=== PATIENT | male | born 1955 | race African-American/Black ===

== ENCOUNTER 2017-05-27 07:22 | Inpatient (IN) | payer MEDICAID ==
[~2017-05-27] VITALS: Ht 172.7 cm; Wt 77.1 kg
[~2017-05-27 07:22] MED LIST: AMLO10TA80 PO; ATEN50TA PO; ATOR40TA70 PO; CODE473S5 PO; GLIP5TAB12 PO; HYDR-519 PO; LISI40TA4 PO; ZOLP10TA2 PO
[2017-05-27 12:16] LABS: GLUCOSE URINE 3+ (NEGATIVE); KETONES URINE TRACE (NEGATIVE); LEUKOCYTE ESTERASE URINE 2+ (NEGATIVE); NITRITE URINE POSITIVE (NEGATIVE); OCCULT BLOOD URINE 3+ (NEGATIVE); PROTEIN URINE 2+ (NEGATIVE); SPECIFIC GRAVITY URINE 1.035 (1.005-1.030)
[2017-05-27 12:17] LABS: CLARITY URINE TURBID (CLEAR); COLOR URINE AMBER (YELLOW)
[2017-05-27] MEDS ORDERED: ONDANSETRON HCL 4MG/2ML VIAL IV STA (14:21)
[2017-05-27] MEDS ORDERED: MORPHINE SULFATE 4 MG/ML CPJ (NOT FOR IM USE) IV STA (14:21)
[2017-05-27] MEDS ORDERED: SODIUM CHLORIDE 0.9% 1,000 ML IV ONE (14:21)
[2017-05-27] MEDS ORDERED: MORPHINE SULFATE 4 MG/ML CPJ (NOT FOR IM USE) IV ONE (14:30)
[2017-05-27] MEDS ORDERED: ONDANSETRON HCL 4MG/2ML VIAL IV ONE (14:30)
[2017-05-27] MEDS ORDERED: MORPHINE SULFATE 4 MG/ML CPJ (NOT FOR IM USE) IV NR (14:48)
[2017-05-27] MEDS ORDERED: MORPHINE SULFATE 10 MG/ML CPJ IV NR (14:49)
[2017-05-27 14:53] LABS: BASOPHILS % 0.8 % (0.0-2.0); EOSINOPHILS % 0.2 % (0.0-5.0); HEMATOCRIT. 40.6 % (42.0-52.0); HEMOGLOBIN. 13.4 g/dL (14.0-18.0); LYMPHOCYTES % 15.7 % (20.0-50.0); MEAN PLATELET VOLUME 7.1 fl (7.4-10.4); MONOCYTES % 5.7 % (2.0-8.0); NEUTROPHILS % 77.6 % (40.0-76.0); PLATELET 251 x1000/uL (130-400); RED BLOOD CELL COUNT 4.78 mill/uL (4.7-6.1); RED CELL DISTRIBUTION WIDTH 13.9 % (11.6-14.6)
[2017-05-27 14:57] LABS: CHLORIDE 107 mEq/L (98-107)
[2017-05-27 14:59] LABS: INR 1.1; PARTIAL THROMBOPLASTIN TIME 29.1 sec (23.4-31.0); PROTHROMBIN TIME 11.6 sec (9.4-11.6)
[2017-05-27 15:07] LABS: CARBON DIOXIDE 22 mEq/L (21-32)
[2017-05-27] MEDS ORDERED: CEFTRIAXONE 1 G PREMIX 50 ML IV ONE (16:15)
[2017-05-27 18:21] VITALS: BP 113/68
[2017-05-27] MEDS ORDERED: METF10002 PO (18:27)
[2017-05-27] MEDS ORDERED: ALBU18HF2 IH (18:28)
[2017-05-27 20:00] VITALS: BP 108/63
[2017-05-27] MEDS: ATORVASTATIN CALCIUM 40MG TABLET PO SCH (21:00)
[2017-05-27] MEDS ORDERED: ALBUTEROL 6.7GM HFA INHALER INH SCH (21:00)
[2017-05-27] MEDS: ACETAMINOPHEN 325MG TABLET PO PRN (21:35)
[2017-05-27] MEDS: SODIUM CHLORIDE 0.9% 1,000 ML IV SCH (21:36)
[2017-05-27] MEDS ORDERED: ONDANSETRON HCL 4MG/2ML VIAL IV PRN (22:00)
[2017-05-27] MEDS: BLOOD SUGAR DIAGNOSTIC STRIP TEST SCH (22:15)
[2017-05-27] MEDS: CEFEPIME 1,000 MG in DEXTROSE 5% WATER 50 ML IV SCH (22:21)
[2017-05-27] MEDS: MORPHINE SULFATE 10 MG/ML CPJ IV PRN (22:42)
[2017-05-28] VITALS: BP 115/63
[2017-05-28] MEDS ORDERED: ALBUTEROL (0.083%) 2.5MG/3ML NEB HHN SCH
[2017-05-28 04:00] VITALS: BP 120/68
[2017-05-28 06:21] LABS: BASOPHILS % 0.2 % (0.0-2.0); EOSINOPHILS % 0.1 % (0.0-5.0); HEMATOCRIT. 39.6 % (42.0-52.0); HEMOGLOBIN. 12.8 g/dL (14.0-18.0); LYMPHOCYTES % 8.9 % (20.0-50.0); MEAN CORPUSCULAR HEMOGLOBIN 27.8 pg (28.0-32.0); MEAN CORPUSCULAR VOLUME 86.4 fL (80.0-94.0); MEAN PLATELET VOLUME 7.2 fl (7.4-10.4); MONOCYTES % 5.8 % (2.0-8.0); PLATELET 219 x1000/uL (130-400); RED BLOOD CELL COUNT 4.59 mill/uL (4.7-6.1); RED CELL DISTRIBUTION WIDTH 13.8 % (11.6-14.6)
[2017-05-28] MEDS: BLOOD SUGAR DIAGNOSTIC STRIP TEST SCH ×3 (06:35→21:23)
[2017-05-28] MEDS: SODIUM CHLORIDE 0.9% 1,000 ML IV SCH ×2 (06:35→17:33)
[2017-05-28 07:09] LABS: CARBON DIOXIDE 25 mEq/L (21-32); CHLORIDE 107 mEq/L (98-107)
[2017-05-28 08:00] VITALS: BP 123/65
[2017-05-28] MEDS: ACETAMINOPHEN 325MG TABLET PO PRN ×2 (08:43→15:06)
[2017-05-28] MEDS: LISINOPRIL 40MG TABLET PO SCH (08:44)
[2017-05-28] MEDS: AMLODIPINE 10MG TABLET PO SCH (08:44)
[2017-05-28] MEDS ORDERED: ATENOLOL 50 MG TABLET PO SCH (09:00)
[2017-05-28] MEDS: CEFEPIME 1,000 MG in DEXTROSE 5% WATER 50 ML IV SCH ×2 (09:00→21:18)
[2017-05-28] MEDS: ATENOLOL 100 MG TABLET PO SCH (09:00)
[2017-05-28] MEDS: MORPHINE SULFATE 10 MG/ML CPJ IV PRN ×2 (10:39→18:09)
[2017-05-28 12:00] VITALS: BP 99/61
[2017-05-28] MEDS: TAMSULOSIN HCL 0.4MG SR CAPSULE PO SCH (12:54)
[2017-05-28 16:00] VITALS: BP 101/54
[2017-05-28 20:00] VITALS: BP 122/66
[2017-05-28] MEDS: ATORVASTATIN CALCIUM 40MG TABLET PO SCH (21:18)
[2017-05-28] MEDS: HYDROCODONE/ACETAMINOPHEN 10/325MG TABLET PO PRN (21:20)
[2017-05-29] VITALS: BP 108/57
[2017-05-29] MEDS: SODIUM CHLORIDE 0.9% 1,000 ML IV SCH ×2 (03:00→14:03)
[2017-05-29 04:00] VITALS: BP 106/56
[2017-05-29] MEDS: HYDROCODONE/ACETAMINOPHEN 10/325MG TABLET PO PRN ×3 (05:16→23:23)
[2017-05-29] MEDS: BLOOD SUGAR DIAGNOSTIC STRIP TEST SCH ×4 (07:05→21:02)
[2017-05-29 07:16] LABS: BASOPHILS % 0.3 % (0.0-2.0); EOSINOPHILS % 0.8 % (0.0-5.0); HEMATOCRIT. 36.3 % (42.0-52.0); HEMOGLOBIN. 11.8 g/dL (14.0-18.0); LYMPHOCYTES % 15.7 % (20.0-50.0); MEAN CORPUSCULAR VOLUME 85.7 fL (80.0-94.0); MEAN PLATELET VOLUME 7.5 fl (7.4-10.4); MONOCYTES % 7.3 % (2.0-8.0); NEUTROPHILS % 75.9 % (40.0-76.0); PLATELET 198 x1000/uL (130-400); RED BLOOD CELL COUNT 4.23 mill/uL (4.7-6.1); RED CELL DISTRIBUTION WIDTH 13.7 % (11.6-14.6)
[2017-05-29 08:00] VITALS: BP 105/61
[2017-05-29 08:15] LABS: CARBON DIOXIDE 23 mEq/L (21-32); CHLORIDE 107 mEq/L (98-107)
[2017-05-29] MEDS: LISINOPRIL 40MG TABLET PO SCH (09:00)
[2017-05-29] MEDS: AMLODIPINE 10MG TABLET PO SCH (09:00)
[2017-05-29] MEDS: ATENOLOL 100 MG TABLET PO SCH (09:00)
[2017-05-29] MEDS: TAMSULOSIN HCL 0.4MG SR CAPSULE PO SCH (10:12)
[2017-05-29] MEDS: MORPHINE SULFATE 10 MG/ML CPJ IV PRN (10:18)
[2017-05-29] MEDS: CEFEPIME 1,000 MG in DEXTROSE 5% WATER 50 ML IV SCH (10:49)
[2017-05-29 12:00] VITALS: BP 119/65
[2017-05-29] MEDS ORDERED: POTASSIUM CHLORIDE 20MEQ TABLET SR PO NR (13:00)
[2017-05-29 16:00] VITALS: BP 136/77
[2017-05-29] MEDS ORDERED: LEVOFLOXACIN 500MG PREMIX 100 ML IV SCH (16:30)
[2017-05-29] MEDS: ACETAMINOPHEN 325MG TABLET PO PRN (19:27)
[2017-05-29] MEDS ORDERED: DEXTROSE 50% WATER 50ML SYRINGE IV PRN (19:45)
[2017-05-29 20:00] VITALS: BP 127/65
[2017-05-29] MEDS: ATORVASTATIN CALCIUM 40MG TABLET PO SCH (20:29)
[2017-05-29] MEDS ORDERED: BLOOD SUGAR DIAGNOSTIC STRIP TEST SCH (21:00)
[2017-05-29] MEDS: INSULIN LISPRO 100 UNITS/ML SUBCUT SCH (21:22)
[2017-05-30] VITALS: BP 132/77
[2017-05-30] MEDS: SODIUM CHLORIDE 0.9% 1,000 ML IV SCH ×3 (01:33→18:20)
[2017-05-30 04:00] VITALS: BP 146/77
[2017-05-30 07:18] LABS: BASOPHILS % 0.2 % (0.0-2.0); HEMATOCRIT. 36.6 % (42.0-52.0); HEMOGLOBIN. 12.2 g/dL (14.0-18.0); LYMPHOCYTES % 20.3 % (20.0-50.0); MEAN CORPUSCULAR HEMOGLOBIN 28.4 pg (28.0-32.0); MEAN CORPUSCULAR VOLUME 85.4 fL (80.0-94.0); MEAN PLATELET VOLUME 7.4 fl (7.4-10.4); MONOCYTES % 10.6 % (2.0-8.0); NEUTROPHILS % 66.9 % (40.0-76.0); PLATELET 200 x1000/uL (130-400); RED BLOOD CELL COUNT 4.29 mill/uL (4.7-6.1); RED CELL DISTRIBUTION WIDTH 14.1 % (11.6-14.6)
[2017-05-30] MEDS: BLOOD SUGAR DIAGNOSTIC STRIP TEST SCH ×3 (07:30→17:20)
[2017-05-30 07:37] LABS: CARBON DIOXIDE 24 mEq/L (21-32); CHLORIDE 109 mEq/L (98-107)
[2017-05-30 08:00] VITALS: BP 141/81
[2017-05-30] MEDS: ACETAMINOPHEN 325MG TABLET PO PRN (08:15)
[2017-05-30] MEDS: AMLODIPINE 10MG TABLET PO SCH (08:15)
[2017-05-30] MEDS: TAMSULOSIN HCL 0.4MG SR CAPSULE PO SCH (08:16)
[2017-05-30] MEDS: LISINOPRIL 40MG TABLET PO SCH (08:16)
[2017-05-30] MEDS: ATENOLOL 100 MG TABLET PO SCH (08:17)
[2017-05-30] MEDS: INSULIN LISPRO 100 UNITS/ML SUBCUT SCH ×3 (09:08→17:50)
[2017-05-30] MEDS: HYDROCODONE/ACETAMINOPHEN 10/325MG TABLET PO PRN (09:12)
[2017-05-30] MEDS: DOCUSATE SODIUM 100MG CAPSULE PO SCH ×2 (10:09→17:51)
[2017-05-30 12:00] VITALS: BP 105/61
[2017-05-30 16:00] VITALS: BP 127/73
[2017-05-30 18:20] VITALS: BP 127/73
== END 2017-05-30 18:52 | disposition home or self-care (01) | DRG 720 ==
LOC: ER 09:48 → ENRESERV 14:49 → 6EST 16:09 → EDBEDREQ 16:30 → EDBEDREQTM 16:30
PROVIDERS: ADMIT Internal Medicine; ATTEND Internal Medicine
DX: A41.9 Sepsis, unspecified organism (principal); E11.65 Type 2 diabetes mellitus with hyperglycemia; N10 Acute pyelonephritis; E78.5 Hyperlipidemia, unspecified; N40.0 Benign prostatic hyperplasia without lower urinary tract symptoms; F17.200 Nicotine dependence, unspecified, uncomplicated; I10 Essential (primary) hypertension; I25.10 Atherosclerotic heart disease of native coronary artery without angina pectoris; N39.0 Urinary tract infection, site not specified; Z95.1 Presence of aortocoronary bypass graft; Z79.84 Long term (current) use of oral hypoglycemic drugs; Z79.899 Other long term (current) drug therapy; Z87.442 Personal history of urinary calculi; Z92.3 Personal history of irradiation; Z85.9 Personal history of malignant neoplasm, unspecified; E44.1 Mild protein-calorie malnutrition
CPT/HCPCS: 36415; 74176; 80048; 80053; 81001; 82962; 83605; 83880; 85025; 85610; 85730; 87040; 87077; 87086; 87186; 93005; 96361; 96374; 96375; 99291; J0692; J1815; J1956; J2270; J2405; J7030; J7060

== ENCOUNTER 2019-02-23 16:58 | Emergency (ER) | payer MEDICAID ==
[~2019-02-23] VITALS: Ht 172.7 cm; Wt 81.0 kg
[~2019-02-23 16:58] MED LIST changes: +ASPI-1158 PO; +CLOP75TA4 PO; -CODE473S5 PO; +METF-416 PO; +TAMS-11 PO; -ZOLP10TA2 PO
[2019-02-23] MEDS ORDERED: SODIUM CHLORIDE 0.9% 1,000 ML IV ONE (18:47)
[2019-02-23] MEDS ORDERED: MORPHINE SULFATE 4 MG/ML CPJ (NOT FOR IM USE) IV STA (18:47)
[2019-02-23] MEDS ORDERED: ONDANSETRON HCL 4MG/2ML INJ IV STA (18:47)
[2019-02-23] MEDS ORDERED: KETOROLAC 30MG/ML VIAL IV STA (18:47)
[2019-02-23 19:13] LABS: BASOPHILS % 0.4 % (0.0-2.0); EOSINOPHILS % 0.7 % (0.0-5.0); HEMATOCRIT. 36.3 % (42.0-52.0); HEMOGLOBIN. 11.9 g/dL (14.0-18.0); LYMPHOCYTES % 22.2 % (20.0-50.0); MEAN CORPUSCULAR HEMOGLOBIN 28.3 pg (28.0-32.0); MEAN CORPUSCULAR VOLUME 86.4 fL (80.0-94.0); MEAN PLATELET VOLUME 6.9 fl (7.4-10.4); MONOCYTES % 6.3 % (2.0-8.0); NEUTROPHILS % 70.4 % (40.0-76.0); PLATELET 274 x1000/uL (130-400); RED CELL DISTRIBUTION WIDTH 14.3 % (11.6-14.6)
[2019-02-23 19:18] LABS: CLARITY URINE CLEAR (CLEAR); COLOR URINE YELLOW (YELLOW); KETONES URINE NEGATIVE (NEGATIVE); LEUKOCYTE ESTERASE URINE NEGATIVE (NEGATIVE); NITRITE URINE NEGATIVE (NEGATIVE); OCCULT BLOOD URINE NEGATIVE (NEGATIVE); PH URINE 5.5 (4.5-8.0); PROTEIN URINE NEGATIVE (NEGATIVE); UROBILINOGEN URINE 0.2 E.U./dL (0.2-1.0)
[2019-02-23 19:20] LABS: CHLORIDE 110 mEq/L (98-107); PROTHROMBIN TIME 10.7 sec (9.6-11.0)
[2019-02-23] MEDS ORDERED: IOHEXOL-300 100 ML BOTTLE ONE (20:33)
[2019-02-23] MEDS ORDERED: AZITHROMYCIN 500 MG TABLET PO ONE (21:30)
[2019-02-23] MEDS ORDERED: CEFTRIAXONE SODIUM 250 MG/VIAL IM ONE (21:30)
[2019-02-23] MEDS ORDERED: MORPHINE SULFATE 4 MG/ML CPJ (NOT FOR IM USE) IV ONE (22:30)
[2019-02-23 23:12] VITALS: BP 150/82
== END 2019-02-23 23:10 | disposition home or self-care (01) ==
LOC: ER 16:58
DX: N45.1 Epididymitis (principal); C61 Malignant neoplasm of prostate; C79.51 Secondary malignant neoplasm of bone; I25.10 Atherosclerotic heart disease of native coronary artery without angina pectoris; I25.2 Old myocardial infarction; Z86.73 Personal history of transient ischemic attack (TIA), and cerebral infarction without residual deficits; Z95.1 Presence of aortocoronary bypass graft; Z90.49 Acquired absence of other specified parts of digestive tract; Z87.891 Personal history of nicotine dependence; Z98.1 Arthrodesis status; Z79.82 Long term (current) use of aspirin; Z98.890 Other specified postprocedural states; Z92.3 Personal history of irradiation
CPT/HCPCS: 36415; 74177; 76870; 80053; 81003; 83690; 85025; 85610; 93976; 96372; 96374; 96375; 96376; 99284; J0696; J1885; J2270; J2405; J7030; Q9967

== ENCOUNTER 2019-07-27 15:55 | Emergency (ER) | payer MEDICAID ==
[~2019-07-27] VITALS: Ht 172.7 cm; Wt 75.0 kg
[2019-07-27 16:00] VITALS: BP 124/84
== END 2019-07-27 21:30 | disposition left against medical advice (07) ==
LOC: ER 15:55
DX: Z53.21 Procedure and treatment not carried out due to patient leaving prior to being seen by health care provider (principal)

== ENCOUNTER 2019-07-28 06:44 | Inpatient (IN) | payer MEDICAID ==
[~2019-07-28] VITALS: Ht 172.7 cm; Wt 75.3 kg
[2019-07-28] MEDS ORDERED: ONDANSETRON HCL 4MG/2ML INJ IV STA (07:23)
[2019-07-28] MEDS ORDERED: MORPHINE SULFATE 4 MG/ML CPJ (NOT FOR IM USE) IV STA (07:23)
[2019-07-28] MEDS ORDERED: PIPERACILLIN/TAZ 3.375G PREMIX 50 ML IV ONE (07:30)
[2019-07-28 08:00] VITALS: BP 107/63
[2019-07-28 08:19] LABS: CHLORIDE 109 mEq/L (98-107)
[2019-07-28 08:41] LABS: BASOPHILS % 0.4 % (0.0-2.0); EOSINOPHILS % 1.1 % (0.0-5.0); HEMATOCRIT. 35.8 % (42.0-52.0); HEMOGLOBIN. 11.8 g/dL (14.0-18.0); LYMPHOCYTES % 20.3 % (20.0-50.0); MEAN CORPUSCULAR HEMOGLOBIN 28.3 pg (28.0-32.0); MEAN CORPUSCULAR VOLUME 86.1 fL (80.0-94.0); MEAN PLATELET VOLUME 6.7 fl (7.4-10.4); MONOCYTES % 8.1 % (2.0-8.0); NEUTROPHILS % 70.1 % (40.0-76.0); PLATELET 280 x1000/uL (130-400); RED BLOOD CELL COUNT 4.16 mill/uL (4.7-6.1); RED CELL DISTRIBUTION WIDTH 14.4 % (11.6-14.6)
[2019-07-28 10:05] LABS: PROTHROMBIN TIME 10.6 sec (9.6-11.0)
[2019-07-28] MEDS ORDERED: IOHEXOL-300 100 ML BOTTLE ONE (10:50)
[2019-07-28 11:12] LABS: CLARITY URINE CLEAR (CLEAR); COLOR URINE YELLOW (YELLOW); KETONES URINE NEGATIVE (NEGATIVE); LEUKOCYTE ESTERASE URINE NEGATIVE (NEGATIVE); NITRITE URINE NEGATIVE (NEGATIVE); OCCULT BLOOD URINE NEGATIVE (NEGATIVE); PH URINE 5.5 (4.5-8.0); PROTEIN URINE NEGATIVE (NEGATIVE); SPECIFIC GRAVITY URINE 1.059 (1.005-1.030); UROBILINOGEN URINE 0.2 E.U./dL (0.2-1.0)
[2019-07-28] MEDS ORDERED: DEXTROSE 50% WATER 50ML SYRINGE IV PRN (11:30)
[2019-07-28] MEDS ORDERED: ACETAMINOPHEN 325MG TABLET PO PRN (11:30)
[2019-07-28] MEDS ORDERED: ONDANSETRON HCL 4MG/2ML INJ IV PRN (11:30)
[2019-07-28] MEDS: HYDROCODONE/ACETAMINOPHEN 5/325MG TABLET PO PRN (11:55)
[2019-07-28 12:00] VITALS: BP_SYST 108; BP_SYST 137; BP_DIAS 73; BP_DIAS 74
[2019-07-28] MEDS ORDERED: TAMSULOSIN HCL 0.4MG SR CAPSULE PO NR (12:00)
[2019-07-28] MEDS ORDERED: LEVOFLOXACIN 500MG PREMIX 100 ML IV NR (12:00)
[2019-07-28 13:11] VITALS: BP 141/85
[2019-07-28] MEDS: BLOOD SUGAR DIAGNOSTIC STRIP TEST SCH ×3 (13:29→21:18)
[2019-07-28] MEDS: INSULIN LISPRO 100 UNITS/ML SUBCUT SCH ×3 (13:31→21:25)
[2019-07-28] MEDS: MORPHINE SULFATE 2 MG/ML CPJ (NOT FOR IM USE) IV PRN ×2 (16:02→21:30)
[2019-07-28 20:00] VITALS: BP 128/72
[2019-07-28] MEDS: AMLODIPINE 5MG TABLET PO SCH (21:14)
[2019-07-29] VITALS: BP 122/67
[2019-07-29] MEDS: MORPHINE SULFATE 2 MG/ML CPJ (NOT FOR IM USE) IV PRN ×3 (02:23→22:42)
[2019-07-29 04:00] VITALS: BP 129/66
[2019-07-29] MEDS: BLOOD SUGAR DIAGNOSTIC STRIP TEST SCH ×4 (06:40→21:00)
[2019-07-29 07:01] LABS: CHLORIDE 108 mEq/L (98-107)
[2019-07-29 07:13] LABS: BASOPHILS % 0.5 % (0.0-2.0); EOSINOPHILS % 1.7 % (0.0-5.0); HEMATOCRIT. 33.3 % (42.0-52.0); HEMOGLOBIN. 10.9 g/dL (14.0-18.0); LYMPHOCYTES % 32.3 % (20.0-50.0); MEAN CORPUSCULAR VOLUME 85.6 fL (80.0-94.0); MEAN PLATELET VOLUME 6.9 fl (7.4-10.4); MONOCYTES % 8.7 % (2.0-8.0); NEUTROPHILS % 56.8 % (40.0-76.0); PLATELET 270 x1000/uL (130-400); RED BLOOD CELL COUNT 3.89 mill/uL (4.7-6.1); RED CELL DISTRIBUTION WIDTH 13.8 % (11.6-14.6)
[2019-07-29 08:00] VITALS: BP 113/70
[2019-07-29] MEDS: INSULIN LISPRO 100 UNITS/ML SUBCUT SCH ×4 (08:11→21:00)
[2019-07-29] MEDS: ASPIRIN 81MG TABLET PO SCH (08:13)
[2019-07-29] MEDS: CLOPIDOGREL 75MG TABLET PO SCH (08:13)
[2019-07-29] MEDS: AMLODIPINE 5MG TABLET PO SCH ×2 (08:13→20:24)
[2019-07-29] MEDS: LISINOPRIL 40MG TABLET PO SCH (08:13)
[2019-07-29] MEDS: TAMSULOSIN HCL 0.4MG SR CAPSULE PO SCH (08:14)
[2019-07-29 12:00] VITALS: BP_SYST 113; BP_DIAS 73; BP_DIAS 74
[2019-07-29] MEDS ORDERED: LEVOFLOXACIN 500MG PREMIX 100 ML IV SCH (12:00)
[2019-07-29 16:00] VITALS: BP_SYST 116; BP_SYST 118; BP_DIAS 64; BP_DIAS 71
[2019-07-29] MEDS: HYDROCODONE/ACETAMINOPHEN 5/325MG TABLET PO PRN (17:03)
[2019-07-29 20:00] VITALS: BP 138/80
[2019-07-29] MEDS: INSULIN GLARGINE UD 100 UNITS/ML SYR SUBCUT SCH (22:41)
[2019-07-30] VITALS: BP 126/78
[2019-07-30 04:00] VITALS: BP 118/74
[2019-07-30] MEDS: MORPHINE SULFATE 2 MG/ML CPJ (NOT FOR IM USE) IV PRN ×2 (06:32→11:44)
[2019-07-30] MEDS: BLOOD SUGAR DIAGNOSTIC STRIP TEST SCH ×4 (07:27→20:05)
[2019-07-30] MEDS: CLOPIDOGREL 75MG TABLET PO SCH (09:33)
[2019-07-30] MEDS: LISINOPRIL 40MG TABLET PO SCH (09:33)
[2019-07-30] MEDS: AMLODIPINE 5MG TABLET PO SCH ×2 (09:34→20:01)
[2019-07-30] MEDS: ASPIRIN 81MG TABLET PO SCH (09:34)
[2019-07-30] MEDS: TAMSULOSIN HCL 0.4MG SR CAPSULE PO SCH (09:55)
[2019-07-30] MEDS: INSULIN LISPRO 100 UNITS/ML SUBCUT SCH ×4 (09:58→20:05)
[2019-07-30] MEDS: INSULIN GLARGINE UD 100 UNITS/ML SYR SUBCUT SCH (09:58)
[2019-07-30] MEDS ORDERED: LEVOFLOXACIN 500MG PREMIX 100 ML IV SCH (11:00)
[2019-07-30] MEDS ORDERED: HYDROCODONE/ACETAMINOPHEN 10/325MG TABLET PO PRN (12:45)
[2019-07-30] MEDS: HYDROCODONE/ACETAMINOPHEN 5/325MG TABLET PO PRN (20:06)
[2019-07-30 20:07] VITALS: BP 143/90
[2019-07-30] MEDS ORDERED: INSULIN GLARGINE UD 100 UNITS/ML SYR SUBCUT SCH (22:00)
== END 2019-07-30 20:24 | disposition home or self-care (01) | DRG 501 ==
LOC: ER 06:44 → 6EST 10:52 → EDBEDREQTM 10:54 → EDBEDREQ 10:54 → EDBEDREQSVC 10:54 → ENRESERV 11:45 → 6EST 13:01
PROVIDERS: ADMIT Internal Medicine; ATTEND Internal Medicine
DX: N45.1 Epididymitis (principal); E87.8 Other disorders of electrolyte and fluid balance, not elsewhere classified; E44.0 Moderate protein-calorie malnutrition; E11.65 Type 2 diabetes mellitus with hyperglycemia; D64.9 Anemia, unspecified; R33.9 Retention of urine, unspecified; E78.5 Hyperlipidemia, unspecified; F17.210 Nicotine dependence, cigarettes, uncomplicated; I10 Essential (primary) hypertension; I25.10 Atherosclerotic heart disease of native coronary artery without angina pectoris; N41.0 Acute prostatitis; Z85.46 Personal history of malignant neoplasm of prostate; Z86.73 Personal history of transient ischemic attack (TIA), and cerebral infarction without residual deficits; Z95.1 Presence of aortocoronary bypass graft; Z90.89 Acquired absence of other organs; Z92.3 Personal history of irradiation; I25.2 Old myocardial infarction; Z79.899 Other long term (current) drug therapy; Z79.82 Long term (current) use of aspirin; Z79.84 Long term (current) use of oral hypoglycemic drugs; Z68.25 Body mass index [BMI] 25.0-25.9, adult
CPT/HCPCS: 36415; 71045; 74177; 76870; 80048; 80053; 81003; 82962; 83605; 85025; 93005; 93970; 93976; 99285; J1815; J1956; J2270; J2405; J2543; Q9967